=== PATIENT | female | born 1940 ===

== ENCOUNTER 2017-04-30 11:29 | Emergency (ER) | payer OTHER ==
[2017-04-30 11:34] VITALS: BP 137/70; PULSE 71; RESP 16; TEMP 98.7; O2SAT 98
--- NOTE | 2017-04-30 12:56 | ED PDOC ---
Lower Extremity Pain/Injury Time Seen by Provider: 04/30/17 12:10 Chief Complaint (Nursing): Abnormal Skin Integrity Chief Complaint (Provider): Abnormal Skin Integrity History Per: Patient, Family (son) History/Exam Limitations: no limitations Onset/Duration Of Symptoms: Days (x2 weeks) Current Symptoms Are (Timing): Still Present Additional Complaint(s): Juju Denis is a 77 year old female who presents to the emergency department accompanied by her son, for an evaluation of worsening right foot wound associated with pain radiating to right side of hip ongoing for 2 weeks. Denied any trauma or injury. PMD: none provided Past Medical History Reviewed: Historical Data, Nursing Documentation, Vital Signs Vital Signs: Last Vital Signs Temp 98.7 F 04/30/17 11:32 Pulse 71 04/30/17 11:32 Resp 16 04/30/17 11:32 BP 137/70 04/30/17 11:32 Pulse Ox 98 04/30/17 11:32 - Medical History PMH: No Chronic Diseases - Surgical History Surgical History: No Surg Hx - Family History Family History: States: Unknown Family Hx - Home Medications Home Medications: Ambulatory Orders Medication Instructions Recorded Amoxicillin/Clavulanate [Augmentin 1 tab PO BID #14 tab 04/30/17 875 MG-125 MG] Ibuprofen [Motrin] 600 mg PO Q6 #20 tab 04/30/17 - Allergies Allergies/Adverse Reactions: Allergies Allergy/AdvReac Type Severity Reaction Status Date / Time No Known Allergies Allergy Verified 04/30/17 11:32 Review of Systems ROS Statement: Except As Marked, All Systems Reviewed And Found Negative Musculoskeletal: Positive for: Leg Pain (radiates to right hip), Foot Pain ( right), Other Skin: Positive for: Other (right foot wound) Physical Exam - Reviewed Nursing Documentation Reviewed: Yes Vital Signs Reviewed: Yes - Physical Exam Appears: Positive for: Well, Non-toxic, No Acute Distress Head Exam: Positive for: ATRAUMATIC, NORMAL INSPECTION, NORMOCEPHALIC Extremity: Positive for: Normal ROM, Deformity (6cm hyper pigmentation with small 2cm central ulceration to medical aspect of right foot). 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 No fracture. Osteopenia. Plantar heel spur. Metallic density in the heel pad soft tissues possibly foreign body. JOINTS: Normal. No osteoarthritis. SOFT TISSUE: Normal. OTHER FINDINGS: None. IMPRESSION: Osteopenia. Plantar heel spur. Metallic density in the heel pad soft tissues possibly foreign body. US: Neg for DVT, as read by radiologist Started on Augmentin, given podiatry follow up Scribe Attestation: Documented by Cathleen Perry, acting as a scribe for Lakshmi Francisco Provider Scribe Attestation: All medical record entries made by the Scribe were at my direction and personally dictated by me. I have reviewed the chart and agree that the record accurately reflects my personal performance of the history, physical exam, medical decision making, and the department course for this patient. I have also personally directed, reviewed, and agree with the discharge instructions and disposition. Disposition - Clinical Impression Clinical Impression: Stasis leg ulcer - Disposition Referrals: Podiatry Clinic [Outside] Disposition: Routine/Home Disposition Time: 17:49 Condition: STABLE Prescriptions: Amoxicillin/Clavulanate [Augmentin 875 MG-125 MG] 1 tab PO BID #14 tab Ibuprofen [Motrin] 600 mg PO Q6 #20 tab Instructions: Leg Edema (ED) Forms: [employer] (Greek) Print Language: UZBEK - POA Present On Arrival: None
[2017-04-30 13:27] LABS: BASO # 0.1 K/uL (0.0-0.2); BASO % 0.7 % (0.0-2.0); EOS # 0.3 K/uL (0.0-0.7); EOS % 3.2 % (0.0-4.0); HEMOGLOBIN 13.3 g/dL (12.0-16.0); LYMPH # 2.7 K/uL (1.0-4.3); LYMPH % 32.3 % (20.0-40.0); MEAN CELL VOLUME 91.7 fl (81.0-99.0); MEAN CORPUSCULAR HEMOGLOBIN 31.1 pg (27.0-31.0); MEAN PLATELET VOLUME 8.8 fl (7.2-11.7); MONO % 11.9 % (0.0-10.0); NEUT # 4.3 K/uL (1.8-7.0); NEUT % 51.9 % (50.0-75.0); NRBC % 0.1 % (0.0-0.0); RBC 4.27 Mil/uL (3.80-5.20); RED CELL DISTRIBUTION WIDTH 13.3 % (11.5-14.5); WHITE BLOOD COUNT 8.3 K/uL (4.8-10.8)
[2017-04-30 13:35] LABS: ALB/GLOB RATIO 1.3 (1.0-2.1); ALBUMIN 3.8 g/dL (3.5-5.0); ALT/SGPT 73 U/L (9-52); AST/SGOT 61 U/L (14-36); BLOOD UREA NITROGEN 14 mg/dl (7-17); CALCIUM 9.2 mg/dL (8.4-10.2); GFR AFRICAN-AMERICAN > 60; GFR NON-AFRICAN AMERICAN > 60
--- NOTE | 2017-04-30 13:39 | RAD ---
PROCEDURE: Right Knee Radiographs. HISTORY: pain COMPARISON: None. FINDINGS: BONES: Normal. No fracture. JOINTS: Normal. No osteoarthritis. JOINT EFFUSION: None. OTHER FINDINGS: None. IMPRESSION: Normal radiographs of the right knee.
--- NOTE | 2017-04-30 13:43 | RAD ---
HISTORY: ulceration developing COMPARISON: No prior FINDINGS: BONES: Normal. No fracture. Osteopenia. Plantar heel spur. Metallic density in the heel pad soft tissues possibly foreign body. JOINTS: Normal. No osteoarthritis. SOFT TISSUE: Normal. OTHER FINDINGS: None . IMPRESSION: Osteopenia. Plantar heel spur. Metallic density in the heel pad soft tissues possibly foreign body.
--- NOTE | 2017-05-01 09:54 | US ---
EXAM: Venous Doppler unilateral right INDICATIONS: Pain. Evaluate for deep venous thrombosis. TECHNIQUE: Duplex venous evaluation of the right lower extremity was performed utilizing graded compression, color Doppler and spectral Doppler interrogation. COMPARISON: None available. FINDINGS: There is normal morphology, compressibility, Doppler flow, and augmentation of the right common femoral, femoral, and popliteal veins. Visualized portions of the posterior tibial vein are unremarkable. Soft tissue swelling noted at the level of the right ankle. IMPRESSION: No evidence of deep venous thrombosis in the right femoropopliteal system. Preliminary impression was provided by [facility]. Findings are concordant.
== END 2017-04-30 17:54 | disposition home or self-care (01) ==
LOC: H.ER 11:29
DX: L97.519 Non-pressure chronic ulcer of other part of right foot with unspecified severity (principal); M85.80 Other specified disorders of bone density and structure, unspecified site